=== PATIENT | male | born 1960 | race Caucasian/White ===

== ENCOUNTER 2022-10-01 09:07 | Emergency (ER) | payer MEDICAID, MEDICARE ==
[~2022-10-01] VITALS: Ht 180.3 cm; Wt 62.0 kg
[~2022-10-01 09:07] MED LIST: ATOR10TA87 PO; BAC10T PO; DEXL60CA3 PO; DICY10CA88 PO; ONDA4TAB9 PO; PER5325T PO; PREG75CA30 PO
[2022-10-01 09:12] VITALS: BP 211/112
[2022-10-01] MEDS ORDERED: PRED50TA PO (10:04)
[2022-10-01] MEDS ORDERED: AMOX-117 PO (10:04)
--- NOTE | 2022-10-01 10:04 | NUR ---
Pt uses [facility] in [place] for [facility]
== END 2022-10-01 10:23 | disposition home or self-care (01) ==
LOC: ER 09:08
DX: J02.9 Acute pharyngitis, unspecified (principal); E78.00 Pure hypercholesterolemia, unspecified; Z79.899 Other long term (current) drug therapy
CPT/HCPCS: 99284